=== PATIENT | female | born 1955 | race Caucasian/White ===

== ENCOUNTER → 2019-05-19 08:01 | Outpatient (BNVA) | payer MEDICARE, OTHER, SELFPAY | PROVIDERS: Family Provider Nurse Practitioner Family; PCP Nurse Practitioner Family; Visit Provider Nurse Practitioner Psychiatric/Mental Health | DX: F41.1 Generalized anxiety disorder (principal); F33.1 Major depressive disorder, recurrent, moderate; F43.12 Post-traumatic stress disorder, chronic | CPT/HCPCS: 99213 ==

== ENCOUNTER → 2019-05-31 09:46 | Outpatient (BNVA) | payer MEDICARE, OTHER, SELFPAY | PROVIDERS: Family Provider Nurse Practitioner Family; PCP Nurse Practitioner Family; Visit Provider Social Worker | DX: F33.2 Major depressive disorder, recurrent severe without psychotic features (principal) | CPT/HCPCS: 90834 ==

== ENCOUNTER → 2019-07-01 08:57 | Outpatient (BNVA) | payer MEDICARE, OTHER, SELFPAY | PROVIDERS: Family Provider Nurse Practitioner Family; PCP Nurse Practitioner Family; Visit Provider Otolaryngology | DX: H61.91 Disorder of right external ear, unspecified (principal) | CPT/HCPCS: 99213; 99214 ==

== ENCOUNTER 2019-07-02 15:10 | Emergency (ER) | payer MEDICARE, OTHER, SELFPAY ==
--- NOTE | 2019-07-02 15:18 | XR_ITS ---
WS: [id number] Chest 2 views, 07/02/2019 Clinical Data: cp Comparison: Portable chest, 10/01/2018. Findings: No nodules, masses or effusions are seen. The heart is normal. The pulmonary vascularity is not increased. No pneumonia or pneumothorax is seen. The aortic arch and descending aorta show tortu osity. There are clips in the right upper quadrant from a cholecystectomy. XR/XR chest 2V* [id number] Impression: Atherosclerosis.
[2019-07-02 15:34] VITALS: BP 154/93; PULSE 99; RESP 20; TEMP 36.4; O2SAT 99; BMI 23.5
--- NOTE | 2019-07-02 15:59 | ED_ITS ---
Entered by Zina Franco, acting as scribe for Nawaf Quintana DO HPI - Back Pain/Injury General: Chief Complaint: Back Pain/Injury Stated Complaint: sharp rib pain Time Seen by Provider: 07/02/19 15:37 Source: patient Mode of arrival: ambulatory Limitations: no limitations History of Present Illness: HPI Narrative: 64 yo female presents with back maribel n. pt states this started today. pt has a hx of back issues that she is getting injections for but can not get in till Friday. pt states she was working outside when the pain started. pt denies any other symptoms at this time. No history of trauma. She used some [id number] medications with minimal relief. MD elicited complaint: back pain Pertinent past history: prior back pain Timing: constant and progressively worsening Severity: moderate Similar Symptoms Previously: Yes Quality: stabbing Location: left lower back Exacerbating factors: movement and walking Relieving factors: none Context: while lifting and turning/twisting Associated symptoms: Deny abdominal pain, chills, dysuria, fatigue, fever(s), nausea, urinary urgency or vomiting Work related injury: No Review of Systems Const: Reports: other (back pain); Denies: fever, chills, body aches, change in appetite, fatigue or malaise Eyes: Denies: photophobia ENMT: Denies: throat pain, ear pain, nasal discharge or nasal congestion Card: Denies: chest pain, edema, shortness of breath on exertion or shortness of breath when lying down Resp: Denies: shortness of breath, productive cough or non-productive cough GI: Denies: abdominal pain, nausea, vomiting, vomiting blood, coffee grounds in vomit, diarrhea, constipation, bloating, blood in stool or black tarry stool : Denies: difficulty urinating, painful urination, urinary frequency or urinary urgency Skin/Breast: Denies: rash or itching PFSH ED PFSH: Medical History Chronic post-traumatic stress disorder Generalized anxiety disorder Lesion of right external ear Major depressive disorder, recurrent, moderate Social History Smoking and tobacco status: never smoked Physical Exam Const: COMMON NORMALS: no apparent distress GENERAL APPEARANCE: cooperative and comfortable ORIENTATION/CONSCIOUSNESS: Yes awake, Yes oriented to person, Yes oriented to place and Yes oriented to time HENMT: COMMON NORMALS: normocephalic, head/scalp atraumatic, hearing grossly normal bilaterally, external ears normal, EAC's normal, TM's normal bilaterally, nasal mucous membranes and turbinates normal, moist oral mucous membranes and oropharynx normal HEAD & SCALP: normocephalic and atraumatic NOSE: nasal mucous membranes and turbinates normal EXTERNAL EAR: Yes external ears normal EXTERNAL AUDITORY CANAL: EAC's normal TYMPANIC MEMBRANE: TM's normal bilaterally Eye: COMMON NORMALS: PERRL, EOMs intact bilaterally, conjunctivae normal and no scleral icterus CONJUNCTIVA: Yes conjunctivae normal PUPIL: Yes PERRL Neck/C-Spine: COMMON NORMALS: no JVD Lymph: LYMPHATIC: no lymphadenopathy noted and no lymphedema noted Resp: COMMON NORMALS: normal respiratory effort, no retractions, no use of accessory muscles and clear to auscultation bilaterally AUSCULTATION: clear to auscultation bilaterally Cardio: COMMON NORMALS: no JVD, regular rate, regular rhythm and no murmurs RATE: regular rate RHYTHM: regular rhythm GI: COMMON NORMALS: soft to palpation and no hepatosplenomegaly AUSCULTATION: Yes normoactive bowel sounds PALPATION: Yes soft, No tender, No guarding and Yes no hepatosplenomegaly : BLADDER/KIDNEY EXAM: No CVA tenderness Back/Pelvis: GENERAL BACK: No CVA tenderness THORACIC SPINE/UPPER BACK: No thoracic spinal tenderness (Discomfort over the left lateral lower ribs. No crepitus, or subq emphysem) Extremity: COMMON NORMALS: normal to inspection, normal capillary refill, no clubbing, cyanosis or edema, no calf tenderness and no pedal edema Neuro: SENSORIUM/ORIENTATION: Yes oriented to person, Yes oriented to place and Yes oriented to time Skin: COMMON NORMALS: no rashes or lesions noted GENERAL SKIN EXAM: no rashes or lesions noted Course ED course: Patient is improving with medications. Will discharge home with muscle relaxers and anti-inflammatories. Patient had previously been seen at a pain clinic and had trigger point injections and sounds like she had some dorsal nerve root blocks as well. She had hoped we would do these here discussed with her that these are best done at the pain clinic and that sometimes we can do here in the emergency room recommend she follow-up with your pain clinic for that. Vital Signs: Vital signs: Vital Signs Temperature 97.6 F 07/02/19 15:34 Pulse Rate 76 07/02/19 17:52 Respiratory Rate 18 07/02/19 17:52 Blood Pressure 143/82 07/02/19 17:52 Pulse Oximetry 99 07/02/19 17:52 Discharge Plan Discharge Patient Disposition: Home, Self-Care Clinical Impression: Thoracic back pain Condition: Stable Prescriptions: New methylprednisolone [Medrol (Jun)] 4 mg tablets,dose pack See Rx Instructions .ROUTE .COMPLEX Qty: 21 RF: 0 diclofenac sodium 75 mg tablet,delayed release (DR/EC) 75 mg PO Q12H PRN (Reason: pain) Qty: 60 RF: 0 metaxalone [Skelaxin] 800 mg tablet 800 mg PO TID PRN (Reason: muscle pain) Qty: 20 RF: 0 lidocaine [Lidoderm] 5 % adhesive patch,medicated 1 patch TOPICAL Q24H Qty: 30 RF: 0 No Action multivitamin Tablet 1 tab PO QAM RF: 0 gabapentin 300 mg capsule 300 mg PO TID RF: 0 venlafaxine [Effexor XR] 150 mg capsule,extended release 24hr 150 mg PO QAM Qty: 30 RF: 4 venlafaxine [Effexor XR] 75 mg capsule,extended release 24hr 75 mg PO QAM Qty: 30 RF: 4 diazepam [Valium] 5 mg tablet 5 mg PO TID PRN (Reason: anxiety) Qty: 90 RF: 3 acyclovir 400 mg Tablet 400 mg PO DAILY PRN (Reason: unknown) RF: 0 omeprazole 40 mg Capsule,Delayed Release(Dr/Ec) 40 mg PO DAILY PRN (Reason: unknown) RF: 0 trazodone 100 mg tablet See Rx Instructions .ROUTE .COMPLEX PRN (Reason: sleep) RF: 0 Referrals: Sully Butler NP [Primary Care Provider] - Discharge Diet: Usual diet Discharge Activity: Increase activity as tolerated Activity Restrictions/Additional Instructions: Recommend you follow-up with your pain clinic doctors. You can use medications prescribed today in the interim. Discharge Date/Time: 07/02/19 17:54 Coding Level of Care Code ED Shop Welder for Chg Fwd Exam Comprehensive The documentation recorded by the scribe, Franco,Zina Ale, accurately reflects the service I personally performed and the decisions made by me, Nawaf Quintana, DO Jul 02, 2019 15:10
[2019-07-02] MEDS: ketorolac 60 mg/2 mL INJ IM (17:07)
[2019-07-02] MEDS: orphenadrine 30 mg/mL Inj 2 mL 60 MG IM (17:08)
[2019-07-02 17:52] VITALS: BP 143/82; PULSE 76; RESP 18; O2SAT 99
== END 2019-07-02 17:54 | disposition home or self-care (01) ==
PROVIDERS: Emergency Provider Family Medicine; Family Provider Nurse Practitioner Family; PCP Nurse Practitioner Family
DX: M54.6 Pain in thoracic spine (principal)
CPT/HCPCS: 71046; 96372; 99281; 99283; J1885; J2360

== ENCOUNTER 2019-07-05 10:47 | Day surgery (SDC) | payer MEDICARE, OTHER, SELFPAY ==
[2019-07-02 12:43] VITALS: BMI 23.5
[2019-07-05] VITALS (9 sets, daily range): BP systolic 117–130; BP diastolic 67–89; PULSE 71–92; RESP 15–21; TEMP 36.4–36.9; O2SAT 91–97
--- NOTE | 2019-07-05 11:39 | ANES.PREANE2 ---
Pre-Anesthetic Assessment Pre-Anesthetic Assessment: Height/Weight: Height 1.7 m Weight 68.039 kg Temp Pulse Resp BP Pulse Ox 97.8 F 76 18 130/89 97 07/05/19 11:10 07/05/19 11:10 07/05/19 11:10 07/05/19 11:10 07/05/19 11:10 Preop Diagnosis: skin lesion Proposed Procedure: Operation Date: 07/05/19 12:10 Proposed Procedures p excision of skin lesion of the right ear, frozen (cpt 17055) H61.91(Right) - Dallas Calvo MD Familial anesthetic complications: none Was Beta Mike taken within 24 hours: N/A Last intake: Intake Last Liquid Date 07/04/19 Last Liquid Time 22:00 Last Solid Date 07/04/19 Last Solid Time 12:00 Social: Social History: No alcohol and No tobacco Exam: Pre-Anes Outpt Exam: alert, oriented x 3, clear to auscultation bilaterally and regular rate & rhythm Airway: Cervical ROM: WNL MP: 2 Dentition: False Pulmonary: Pulmonary: None reported CV/HEM: CV/HEM: None reported : : None reported Hepatic: Hepatic: None reported GI: GI: None reported Metabolic: Metabolic: None reported Musc/skel: Musc/skel: None reported Comments: thoracic back pain (neuropathic) Neuropsych: Neuropsych: Neuropathy and Seizure (? last year) Anesthetic Plan: ASA status: 2 Anesthesia: MAC Risk of > 500 ml blood loss (7ml/kg in children): No PFSH Anesthesia PFSH: Medical History (Updated 07/02/19 @ 16:25 by Nawaf Quintana DO) Chronic post-traumatic stress disorder Generalized anxiety disorder Lesion of right external ear Major depressive disorder, recurrent, moderate Social History Smoking and tobacco status: never smoked Data Anesthesia Cardiac Studies: No Data to Display
[2019-07-05] MEDS: sodium chloride 0.9% 1,000 ML 30 ML IV (11:45)
--- NOTE | 2019-07-05 12:04 | W.PM.OPSUD ---
Surgery/Procedure H&P Update DATE OF PROCEDURE: July 05, 2019 DATE H&P PERFORMED: 07/01/19 H&P UPDATE INFORMATION: I have reviewed H&P completed within last 30 days, I have examined patient prior to procedure and No changes to prior documentation PREOP DIAGNOSIS: skin lesion PLANNED PROCEDURE: Operation Date: 07/05/19 12:10 Proposed Procedures p excision of skin lesion of the right ear, frozen (cpt 05510) H61.91(Right) - Dallas Calvo MD
[2019-07-05] MEDS: neomycin-poly-bacitracin oint 28 gm 1 APPLIC TOPICAL (13:32)
--- NOTE | 2019-07-05 13:53 | PM.OP ---
Operative Report Date of procedure: July 05, 2019 Pre-op Diagnosis: skin lesion Post-op Diagnosis: Squamous cell carcinoma Post-op Findings: Squamous cell carcinoma Procedure Done: Excision 1 cm squamous cell carcinoma left ear Surgeon: Dallas Calvo Anesthesia: General Complications: None Condition: stable Disposition: PACU Brief History: Mrs. Vines is a 64-year-old female with a nonhealing lesion in her left ear. Procedure: The patient was taken to the operating room and under satisfactory general endotracheal anesthesia the left ear was prepped draped and injected. An elliptical excision measuring 1.0 cm in a relaxed skin tension line was performed. Frozen section revealed a squamous cell carcinoma. The margins were positive and a second margin was taken from the patient. These margins were free of tumor. Hemostasis was obtained with a bipolar cautery. The wound was closed with simple interrupted 4-0 Prolene suture. Antibiotic ointment and a cottonball was applied. The patient was allowed awaken and taken to the recovery room where she was observed. During the observation time postoperative care instructions and counseling were given to the patient. When she verbalized an understanding of all instructions and met discharge criteria she was discharged in satisfactory and stable condition.
--- NOTE | 2019-07-05 14:05 | SUR.PHASEI ---
1351 PATIENT TO PACU AT THIS TIME. RR EVEN AND UNLABORED. PWD. NO DISTRESS. COTTON BALL NOTED TO RIGHT EAR. PLACED ON SIMPLE MASK, SPO2 97%
--- NOTE | 2019-07-05 14:36 | SUR.PHASEI ---
1433 PATIENT TO OPS AT THIS TIME. RR EVEN AND UNLABORED. NO DISTRESS. COTTON BALL INTACT TO RIGHT EAR.
== END 2019-07-05 15:10 | disposition home or self-care (01) ==
PROVIDERS: Family Provider Nurse Practitioner Family; PCP Nurse Practitioner Family; Visit Provider Otolaryngology
PROC: (CPT 11641; principal; 2019-07-05 12:00)
DX: C44.229 Squamous cell carcinoma of skin of left ear and external auricular canal (principal); F32.9 Major depressive disorder, single episode, unspecified; F41.9 Anxiety disorder, unspecified
CPT/HCPCS: 11641; 12345; 88305; J1100; J2001; J2250; J2370; J2405; J2704; J2710; J2765; J3010; J3490; J7030

== ENCOUNTER → 2019-07-19 10:30 | Outpatient (BNVA) | payer MEDICARE, OTHER, SELFPAY | PROVIDERS: Family Provider Nurse Practitioner Family; PCP Nurse Practitioner Family; Visit Provider Otolaryngology | DX: H61.91 Disorder of right external ear, unspecified (principal) | CPT/HCPCS: 99212; 99214 ==

== ENCOUNTER → 2019-07-20 11:13 | Outpatient (BNVA) | payer MEDICARE, OTHER, SELFPAY | PROVIDERS: Family Provider Nurse Practitioner Family; PCP Nurse Practitioner Family; Visit Provider Nurse Practitioner Psychiatric/Mental Health | DX: F41.1 Generalized anxiety disorder (principal); F33.1 Major depressive disorder, recurrent, moderate; F43.12 Post-traumatic stress disorder, chronic | CPT/HCPCS: 99213 ==

== ENCOUNTER → 2019-10-14 07:33 | Outpatient (BNVA) | payer MEDICARE, OTHER, SELFPAY | PROVIDERS: Family Provider Nurse Practitioner Family; PCP Nurse Practitioner Family; Visit Provider Nurse Practitioner Psychiatric/Mental Health | DX: F41.1 Generalized anxiety disorder (principal); F33.1 Major depressive disorder, recurrent, moderate; F43.12 Post-traumatic stress disorder, chronic | CPT/HCPCS: 99213 ==

== ENCOUNTER → 2019-11-23 07:45 | Outpatient (BNVA) | payer MEDICARE, OTHER, SELFPAY | PROVIDERS: Family Provider Nurse Practitioner Family; PCP Nurse Practitioner Family; Visit Provider Nurse Practitioner Psychiatric/Mental Health | DX: F41.1 Generalized anxiety disorder (principal); F33.1 Major depressive disorder, recurrent, moderate; F43.12 Post-traumatic stress disorder, chronic | CPT/HCPCS: 99213 ==

== ENCOUNTER → 2020-02-15 07:50 | Outpatient (BNVA) | payer MEDICARE, OTHER, SELFPAY | PROVIDERS: Family Provider Nurse Practitioner Family; PCP Nurse Practitioner Family; Visit Provider Nurse Practitioner Psychiatric/Mental Health | DX: F41.1 Generalized anxiety disorder (principal); F33.1 Major depressive disorder, recurrent, moderate; F43.12 Post-traumatic stress disorder, chronic | CPT/HCPCS: 99213 ==

== ENCOUNTER → 2020-02-22 09:02 | Outpatient (BNVA) | payer MEDICARE, OTHER, SELFPAY | PROVIDERS: Family Provider Nurse Practitioner Family; PCP Nurse Practitioner Family; Visit Provider Nurse Practitioner Family | DX: R32 Unspecified urinary incontinence (principal); N30.90 Cystitis, unspecified without hematuria; N39.41 Urge incontinence | CPT/HCPCS: 80053; 81003 ==

== ENCOUNTER 2020-03-22 11:49 | Outpatient (CLI) | payer MEDICARE, OTHER, SELFPAY ==
--- NOTE | 2020-03-22 12:10 | US_ITS ---
WS: [id number] ULTRASOUND SOFT TISSUES RIGHT volar wrist. HISTORY: R ANTERIOR WRIST PAIN COMPARISON: None available. TECHNIQUE: 2-D and color Doppler imaging is submitted. No definite abnormalities noted in the soft tissues of the volar wrist. No cystic or solid mass. US/US soft tissue/extremity [id number] IMPRESSION: No definite abnormalities noted within the volar wrist at the area of the palpa ble abnormality. For further evaluation consider MRI RIGHT wrist with and witho ut contrast.
== END 2020-03-22 11:50 | disposition home or self-care (01) ==
LOC: RAD 11:55
PROVIDERS: PCP Nurse Practitioner Family; Visit Provider Nurse Practitioner Family
DX: M25.531 Pain in right wrist (principal)
CPT/HCPCS: 76882

== ENCOUNTER → 2020-03-28 07:42 | Outpatient (BNVA) | payer MEDICARE, OTHER, SELFPAY | PROVIDERS: PCP Nurse Practitioner Family; Visit Provider Urology | DX: N39.41 Urge incontinence (principal); N30.90 Cystitis, unspecified without hematuria | CPT/HCPCS: 81003 ==

== ENCOUNTER → 2020-06-02 08:25 | Outpatient (BNVA) | payer MEDICARE, OTHER, SELFPAY | PROVIDERS: PCP Nurse Practitioner Family; Visit Provider Nurse Practitioner Psychiatric/Mental Health | DX: F33.1 Major depressive disorder, recurrent, moderate (principal); F41.1 Generalized anxiety disorder; F43.12 Post-traumatic stress disorder, chronic | CPT/HCPCS: 99213 ==

== ENCOUNTER → 2020-08-18 07:55 | Outpatient (BNVA) | payer MEDICARE, OTHER, SELFPAY | PROVIDERS: PCP Nurse Practitioner Family; Visit Provider Nurse Practitioner Psychiatric/Mental Health | DX: F33.1 Major depressive disorder, recurrent, moderate (principal); F41.1 Generalized anxiety disorder; F43.12 Post-traumatic stress disorder, chronic | CPT/HCPCS: 99214 ==

== ENCOUNTER → 2020-09-11 15:03 | Outpatient (BNVA) | payer MEDICARE, OTHER, SELFPAY | PROVIDERS: PCP Nurse Practitioner Family; Visit Provider Specialist | DX: G56.01 Carpal tunnel syndrome, right upper limb (principal); M77.8 Other enthesopathies, not elsewhere classified | CPT/HCPCS: 95908 ==

== ENCOUNTER → 2020-12-08 07:15 | Outpatient (BNVA) | payer MEDICARE, OTHER, SELFPAY | PROVIDERS: PCP Nurse Practitioner Family; Visit Provider Nurse Practitioner Psychiatric/Mental Health | DX: F33.1 Major depressive disorder, recurrent, moderate (principal); F41.1 Generalized anxiety disorder; F43.12 Post-traumatic stress disorder, chronic | CPT/HCPCS: 99214 ==

== ENCOUNTER → 2021-04-20 07:32 | Outpatient (BNVA) | payer MEDICARE, OTHER, SELFPAY | PROVIDERS: PCP Nurse Practitioner Family; Visit Provider Nurse Practitioner Psychiatric/Mental Health | DX: F33.1 Major depressive disorder, recurrent, moderate (principal); F41.1 Generalized anxiety disorder; F43.12 Post-traumatic stress disorder, chronic | CPT/HCPCS: 99214 ==

== ENCOUNTER → 2021-05-14 16:35 | Outpatient (BNVA) | payer MEDICARE, OTHER, SELFPAY | PROVIDERS: PCP Nurse Practitioner Family; Visit Provider Nurse Practitioner Family | DX: Z20.822 Contact with and (suspected) exposure to COVID-19 (principal) | CPT/HCPCS: 87635 ==

== ENCOUNTER 2021-05-15 14:26 | Outpatient (CLI) | payer MEDICARE, OTHER, SELFPAY ==
--- NOTE | 2021-05-15 14:34 | XR_ITS ---
WS: [id number] CHEST 2 VIEWS HISTORY: SYSTEMIC VIRAL ILLNESS COMPARISON: 07/02/2019 Lungs: Hyperinflated lungs. Increased area of consolidation centered over the RIGHT hilum. No pleural effusion or pneumothorax. Cardiac size: Normal. Mediastinum/Aorta: Mild atherosclerosis aorta. Bones: Normal. XR/XR chest 2V* [id number] IMPRESSION: 1. Increased consolidation centered over the RIGHT hilum. Suspect pneumonia. R ecommend follow-up to resolution. Follow-up chest radiograph in 2-3 weeks. 2. Mild atherosclerosis aorta.
== END 2021-05-15 14:27 | disposition home or self-care (01) ==
PROVIDERS: PCP Nurse Practitioner Family; Visit Provider Nurse Practitioner Family
DX: B34.9 Viral infection, unspecified (principal); I70.0 Atherosclerosis of aorta; Z20.822 Contact with and (suspected) exposure to COVID-19
CPT/HCPCS: 71046; 87801

== ENCOUNTER → 2021-09-07 10:27 | Outpatient (BNVA) | payer MEDICARE, OTHER, SELFPAY | PROVIDERS: PCP Nurse Practitioner Family; Visit Provider Urology | DX: N39.41 Urge incontinence (principal); N30.90 Cystitis, unspecified without hematuria | CPT/HCPCS: 81003; 99213 ==

== ENCOUNTER → 2021-09-19 10:56 | Outpatient (BNVA) | payer MEDICARE, OTHER, SELFPAY | PROVIDERS: PCP Nurse Practitioner Family; Visit Provider Nurse Practitioner Psychiatric/Mental Health | DX: F33.1 Major depressive disorder, recurrent, moderate (principal); F41.1 Generalized anxiety disorder; F43.12 Post-traumatic stress disorder, chronic | CPT/HCPCS: 99214 ==

== ENCOUNTER → 2021-11-29 09:27 | Outpatient (BNVA) | payer MEDICARE, OTHER, SELFPAY | PROVIDERS: PCP Nurse Practitioner Family; Visit Provider Nurse Practitioner Family | DX: N39.41 Urge incontinence (principal) | CPT/HCPCS: 81003; 99213 ==

== ENCOUNTER 2022-02-20 14:53 | Outpatient (CLI) | payer MEDICARE, OTHER, SELFPAY ==
--- NOTE | 2022-02-20 15:03 | MM_ITS ---
WS: [id number] Bilateral screening 3D tomosynthesis digital mammogram, 02/20/2022 Clinical Data: SCREEN Comparison: 09/26/2015, 07/08/2013. Findings: The breast parenchymal pattern shows heterogeneous density. No spiculated masses or clustered calcifi cations are seen. There are no secondary signs of carcinoma. Are small bilateral axillary lymph nodes . MM/[place] [id number] Impression: 1. Negative bilateral mammogram unchanged. 2. Recommend annual screening mammograms. BIRADS: 1-Negative FOLLOW UP: 1 Year Follow-up The CAD tool or die drawing checker was used.
== END 2022-02-20 14:54 | disposition home or self-care (01) ==
LOC: RAD 14:54
PROVIDERS: PCP Family Medicine; Visit Provider Family Medicine
DX: Z12.31 Encounter for screening mammogram for malignant neoplasm of breast (principal)
CPT/HCPCS: 77063; 77067

== ENCOUNTER 2022-08-15 05:27 | Emergency (ER) | payer MEDICARE, OTHER, SELFPAY ==
[2022-08-15 05:31] VITALS: BP 165/102; PULSE 101; RESP 20; TEMP 36.8; O2SAT 98; BMI 25.8
--- NOTE | 2022-08-15 05:36 | ED_ITS ---
Documented by User: Mansoor Salcido MD 08/22/22 19:24 HPI - Neck Pain/Injury General: Chief Complaint: Neck Pain/Injury Stated Complaint: Back Of Head Pain Time Seen by Provider: 08/15/22 05:29 History of Present Illness: Ms. Vines is a 67-year-old lady presenting to the emergency department for atraumatic severe posterior head and neck pain. She reports being at her baseline health when she went to bed last night and woke up about 3:30 AM with severe posterior head and superior neck pain. She reports excruciating pain with any attempts at range of motion. Denies any associated neurologic changes. She does report that she has been doing a little bit of housework and remodeling however denies any specific known injury or pain like this in the past. No other specific changes in health, exacerbating, or alleviating factors identified. Onset (ago): hour(s) Radiation: occiput Severity: severe Quality: sharp, stabbing and aching Relieving factors: none Exacerbating factors: movement of neck Associated symptoms: Reports no associated symptoms Review of Systems General: Reports: 10 or more systems reviewed and unremarkable except in HPI and below PFSH ED PFSH: Medical History Chronic post-traumatic stress disorder Cystitis Generalized anxiety disorder Lesion of right external ear Major depressive disorder, recurrent, moderate Urgency incontinence Surgical History Hx laparoscopic cholecystectomy Hx of abdominal hysterectomy Family History Father CAD (coronary artery disease) Social History Smoking and tobacco status: never smoked Alcohol intake: current Alcohol intake frequency: 0-2 Drinks per Day Substance/Drug Use: unknown Adopted: No Caregiver/support person: No Lives independently: Yes Marital status: Current occupational status: disabled Physical Exam Const: COMMON NORMALS: alert GENERAL APPEARANCE: cooperative and well developed HENMT: COMMON NORMALS: normocephalic and atraumatic HEAD & SCALP: normocephalic and atraumatic Eye: COMMON NORMALS: conjunctivae normal CONJUNCTIVA: Yes conjunctivae normal SCLERA: sclerae normal Neck/C-Spine: GENERAL: Yes trachea midline OTHER: Tenderness palpation without specific abnormality at the craniocervical junction. Tenderness is more midline than paraspinal. No right lateral or left lateral tenderness to palpation. Resp: COMMON NORMALS: clear to auscultation bilaterally EFFORT & INSPECTION: Yes able to speak in complete sentences AUSCULTATION: clear to auscultation bilaterally Cardio: COMMON NORMALS: regular rate and regular rhythm RATE: regular rate RHYTHM: regular rhythm GI: COMMON NORMALS: Soft to palpation PALPATION: Yes Soft to palpation and No Tenderness to palpation present (GI) PERCUSSION: normal to percussion Extremity: GENERAL: Yes normal exam except as noted and No edema Neuro: COMMON NORMALS: moves all extremities SENSORIUM/ORIENTATION: Yes alert and No Orientation impaired Psych: COMMON NORMALS: mental status grossly normal and Normal thought process present THOUGHT PROCESS: Normal thought process present Course Vital Signs: Vital signs: Vital Signs Temperature 98.2 F 08/15/22 05:31 Pulse Rate 78 08/15/22 05:41 Respiratory Rate 18 08/15/22 05:41 Blood Pressure 165/102 08/15/22 05:41 Pulse Oximetry 98 08/15/22 05:41 Oxygen Delivery Me thod Room Air 08/15/22 05:41 MDM - Neck Pain/Injury Medical Decision Making 67-year-old lady presenting with atraumatic severe neck pain. Exam as above. Patient has limitation with range of motion secondary to pain however pain is more posterior in nature and midline as opposed to clear muscular etiology. No associated neurologic deficits. Analgesia ordered and CT imaging ordered. Patient care handed off to Dr. Quintana pending completion of ED evaluation and reassessment of patient condition. Medical Records I reviewed the patient's medical records. Lab Data I reviewed the patient's lab results. Radiology Impressions Cervical Spine CT 08/15/22 05:41 IMPRESSION: No acute findings. Head CT 08/15/22 05:41 IMPRESSION: No acute intracranial abnormality. Discharge Plan Discharge Patient Disposition: Home Clinical Impression: Strain of neck muscle Condition: Stable Prescriptions: New prednisone 20 mg tablet 20 mg PO TID Qty: 15 0RF Rx Instructions: 1 p.o. 3 times daily x3 days, 1 p.o. twice daily x2 days, 1 p.o. daily x2 days diclofenac sodium 75 mg tablet,delayed release (DR/EC) 75 mg PO Q12H PRN (Reason: pain) Qty: 20 0RF tizanidine 4 mg tablet 4 mg PO Q6H PRN (Reason: muscle spasticity) Qty: 20 0RF Rx Instructions: do not exceed 3 doses per 24 hrs No Action multivitamin Tablet 1 tab PO QAM solifenacin 5 mg tablet 5 mg PO DAILY Qty: 30 6RF halobetasol propionate 0.05 % ointment 1 applic topical TID PRN hydroxyzine pamoate [Vistaril] 25 mg capsule 25 mg PO TID PRN (Reason: anxiety) venlafaxine [Effexor XR] 37.5 mg capsule,extended release 24hr 37.5 mg PO .morning Qty: 30 3RF Rx Instructions: Take one capsule every morning trazodone 100 mg tablet 200 mg .ROUTE DIRECTED PRN (Reason: sleep) Qty: 60 3RF Rx Instructions: Take one to two tablets at bedtime as needed for sleep acyclovir 400 mg tablet 400 mg PO DAILY Rx Instructions: 1 tablet am 1 tablet pm Discharge Orders: Discharge ED (Routine); Ordered 08/15/22 Ordered By: Nawaf Quintana Referrals: Dallas Coombs MD [Primary Care Provider] - Discharge Diet: Usual diet Patient Instructions: Opioid Safety, Pain Management Activity Restrictions/Additional Instructions: You were seen today for neck pain. No structural abnormalities were found on the CTs of your head or neck. Medications were given to help deal with the pain it appears to be soft tissue related if not improving in the next few days follow-up with your primary care doctor for further evaluation as deemed appropriate. Sign Out Sign Out Data: Patient Sign Out occurred on 08/15/22 at 06:45. Patient's care was discussed, and care was transferred from to Nawaf Quintana DO. Coding Level of Care Code ED Regulatory Auditor for Chg Fwd Documented by User: Nawaf Quintana DO 08/15/22 07:06 HPI - Neck Pain/Injury General: Chief Complaint: Neck Pain/Injury Stated Complaint: Back Of Head Pain Time Seen by Provider: 08/15/22 05:29 PFSH ED PFSH: Medical History Chronic post-traumatic stress disorder Cystitis Generalized anxiety disorder Lesion of right external ear Major depressive disorder, recurrent, moderate Urgency incontinence Surgical History Hx laparoscopic cholecystectomy Hx of abdominal hysterectomy Family History Father CAD (coronary artery disease) Social History Smoking and tobacco status: never smoked Alcohol intake: current Alcohol intake frequency: 0-2 Drinks per Day Substance/Drug Use: unknown Adopted: No Caregiver/support person: No Lives independently: Yes Marital status: Current occupational status: disabled Course Vital Signs: Vital signs: Vital Signs Temperature 98.2 F 08/15/22 05:31 Pulse Rate 78 08/15/22 05:41 Respiratory Rate 18 08/15/22 05:41 Blood Pressure 165/102 08/15/22 05:41 Pulse Oximetry 98 08/15/22 05:41 Oxygen Delivery Me thod Room Air 08/15/22 05:41 MDM - Neck Pain/Injury Medical Decision Making 67-year-old lady presenting with atraumatic severe neck pain. Exam as above. Patient has limitation with range of motion secondary to pain however pain is more posterior in nature and midline as opposed to clear muscular etiology. No associated neurologic deficits. Analgesia ordered and CT imaging ordered. Patient care handed off to Dr. Quintana pending completion of ED evaluation and reassessment of patient condition. Patient initially seen by Dr. Salcido. Care assumed at change of shift. Reviewed CT CT head and neck are negative. Discussed with patient it sounds more musculoskeletal in nature she has no radicular upper extremity symptoms. She did state that she had been moving some mulch with a pitchfork before this seemed to happen. Reexamined no sign of radicular findings or neural impingement will discharge home with prednisone taper anti-inflammatories muscle relaxer if no improvement follow-up with primary care for further evaluation and treatment if needed. Lab Data Radiology Impressions Cervical Spine CT 08/15/22 05:41 IMPRESSION: No acute findings. Head CT 08/15/22 05:41 IMPRESSION: No acute intracranial abnormality. Discharge Plan Discharge Patient Disposition: Home Clinical Impression: Strain of neck muscle Condition: Stable Prescriptions: New prednisone 20 mg tablet 20 mg PO TID Qty: 15 0RF Rx Instructions: 1 p.o. 3 times daily x3 days, 1 p.o. twice daily x2 days, 1 p.o. daily x2 days diclofenac sodium 75 mg tablet,delayed release (DR/EC) 75 mg PO Q12H PRN (Reason: pain) Qty: 20 0RF tizanidine 4 mg tablet 4 mg PO Q6H PRN (Reason: muscle spasticity) Qty: 20 0RF Rx Instructions: do not exceed 3 doses per 24 hrs No Action multivitamin Tablet 1 tab PO QAM solifenacin 5 mg tablet 5 mg PO DAILY Qty: 30 6RF halobetasol propionate 0.05 % ointment 1 applic topical TID PRN hydroxyzine pamoate [Vistaril] 25 mg capsule 25 mg PO TID PRN (Reason: anxiety) venlafaxine [Effexor XR] 37.5 mg capsule,extended release 24hr 37.5 mg PO .morning Qty: 30 3RF Rx Instructions: Take one capsule every morning trazodone 100 mg tablet 200 mg .ROUTE DIRECTED PRN (Reason: sleep) Qty: 60 3RF Rx Instructions: Take one to two tablets at bedtime as needed for sleep acyclovir 400 mg tablet 400 mg PO DAILY Rx Instructions: 1 tablet am 1 tablet pm Discharge Orders: Discharge ED (Routine); Ordered 08/15/22 Ordered By: Nawaf Quintana Referrals: Dallas Coombs MD [Primary Care Provider] - Discharge Diet: Usual diet Patient Instructions: Opioid Safety, Pain Management Activity Restrictions/Additional Instructions: You were seen today for neck pain. No structural abnormalities were found on the CTs of your head or neck. Medications were given to help deal with the pain it appears to be soft tissue related if not improving in the next few days follow-up with your primary care doctor for further evaluation as deemed appropriate. Sign Out Sign Out Data: Patient Sign Out occurred on 08/15/22 at 06:45. Patient's care was discussed, and care was transferred from to Nawaf Quintana DO. Coding Level of Care Code ED Regulatory Auditor for Mary [place]
[2022-08-15 05:41] VITALS: BP 165/102; PULSE 78; RESP 18; O2SAT 98
--- NOTE | 2022-08-15 05:41 | CTR_ITS ---
PROCEDURE INFORMATION: Exam: CT Cervical Spine Without Contrast Exam date and time: 08/15/2022 6:15 AM Age: 67 years old Clinical indication: Neck pain; Additional info: Upper neck pain, atraumatic TECHNIQUE: Imaging protocol: Computed tomography of the cervical spine without contrast. Radiation optimization: All CT scans at this facility use at least one of these dose optimization techniques: automated exposure control; mA and/or kV adjustment per patient size (includes targeted exams where dose is matched to clinical indication); or iterative reconstruction. REPORTING DATA: Count of CT and Cardiac NM exams in prior 12 months: This patient has received [address] and 0 known cardiac nuclear medicine studies in the 12 months prior to the current study. COMPARISON: MR head wo con* [id number] 11/20/2018 4:29 PM RADIATION DOSE METRICS: Total DLP (mGy-cm): 192.9 FINDINGS: Bones/joints: No acute fracture. Normal alignment. No significant disc bulge or herniation. No severe spinal canal stenosis. No significant neural foraminal narrowing. The cervical spine demonstrates marked degenerative changes at multiple levels. Lungs: Lung apices are normal. Soft tissues: Unremarkable. CT/CT cervical spin wo con* [id number] IMPRESSION: No acute findings.
--- NOTE | 2022-08-15 05:41 | CTR_ITS ---
PROCEDURE INFORMATION: Exam: CT Head Without Contrast Exam date and time: 08/15/2022 6:15 AM Age: 67 years old Clinical indication: Pain; Headache; Additional info: Atraumatic posterior head pain TECHNIQUE: Imaging protocol: Computed tomography of the head without contrast. Radiation optimization: All CT scans at this facility use at least one of these dose optimization techniques: automated exposure control; mA and/or kV adjustment per patient size (includes targeted exams where dose is matched to clinical indication); or iterative reconstruction. REPORTING DATA: Count of CT and Cardiac NM exams in prior 12 months: This patient has received [address] and 0 known cardiac nuclear medicine studies in the 12 months prior to the current study. COMPARISON: MR head wo con* [id number] 11/20/2018 4:29 PM RADIATION DOSE METRICS: Total DLP (mGy-cm): 1129.52 FINDINGS: Brain: [id number] severity cerebral cortical atrophy. No hemorrhage. Unremarkable white matter. No mass effect. Cerebral ventricles: No ventriculomegaly. Paranasal sinuses: Visualized sinuses are unremarkable. No fluid levels. Mastoid air cells: Visualized mastoid air cells are well aerated. Bones/joints: Unremarkable. No acute fracture. Soft tissues: Unremarkable. CT/CT head wo con* [id number] IMPRESSION: No acute intracranial abnormality.
[2022-08-15] MEDS: fentaNYL 50 mcg/mL INJ 2mL IVP (06:14)
== END 2022-08-15 07:09 | disposition home or self-care (01) ==
PROVIDERS: Emergency Provider Family Medicine; PCP Family Medicine
DX: S16.1XXA Strain of muscle, fascia and tendon at neck level, initial encounter (principal); X58.XXXA Exposure to other specified factors, initial encounter
CPT/HCPCS: 70450; 72125; 96374; 99285; J3010

== ENCOUNTER → 2022-12-12 08:10 | Outpatient (BNVA) | payer MEDICARE, OTHER, SELFPAY | PROVIDERS: PCP Family Medicine; Visit Provider Podiatrist Foot & Ankle Surgery | DX: M20.12 Hallux valgus (acquired), left foot; M77.42 Metatarsalgia, left foot; M24.572 Contracture, left ankle; M77.52 Other enthesopathy of left foot and ankle | CPT/HCPCS: 73630; 99204 ==

== ENCOUNTER 2024-01-08 12:57 | Outpatient (CLI) | payer MEDICARE, OTHER, SELFPAY ==
--- NOTE | 2024-01-08 13:00 | MM_ITS ---
WS: [id number] BILATERAL SCREENING DIGITAL TOMOSYNTHESIS MAMMOGRAM WITH CAD HISTORY: SCREENING COMPARISON: 02/20/2022, 09/26/2015 Bilateral CC and MLO views with tomosynthesis and synthetic mammography submitted. Computer aided det ection analyzed. Breast composition: The breasts are heterogeneously dense, which may obscure small masses. No suspici ous masses, microcalcifications or architectural distortion. Numerous scattered benign calcifications and asymmetries. Asymmetries are involuting over time as expected. MM/[place] [id number] IMPRESSION: BI-RADS: 2 - Benign FOLLOW UP: 1 Year Follow-up
== END 2024-01-08 12:58 | disposition home or self-care (01) ==
LOC: RAD 12:57
PROVIDERS: PCP Family Medicine; Visit Provider Family Medicine
DX: Z12.31 Encounter for screening mammogram for malignant neoplasm of breast (principal); R92.333 Mammographic heterogeneous density, bilateral breasts; R92.1 Mammographic calcification found on diagnostic imaging of breast; N64.89 Other specified disorders of breast
CPT/HCPCS: 77063; 77067